=== PATIENT | female | born 1950 | race Caucasian/White ===

== ENCOUNTER 2021-09-28 12:19 | Observation (INO) | payer MEDICARE ==
[2021-09-28 12:57] LABS: #Eosinphils 0.1 thou/uL (0.0-0.7); #Lymphocytes 1.7 thou/uL (1.20-3.40); #Monocytes 0.7 thou/uL (0.11-0.59); #Neutrophils 3.3 thou/uL (1.40-6.50); %Basophils 0.5 % (0.0-1.0); %Eosinophils 1.1 % (0.0-10.0); %Lymphocytes 29.1 % (21.0-51.0); %Monocytes 11.7 % (0.0-10.0); %Neutrophils 57.6 % (42.0-75.0); Hemoglobin 11.9 g/dL (12.0-16.0); Mean Corpuscular HGB CONC 32.4 g/dL (32.0-36.0); Mean Corpuscular Hemoglobin 30.6 pg (27.0-31.0); Mean Corpuscular Volume 94.4 fL (78.0-98.0); Mean Platelet Volume 7.3 fL (7.4-10.4); Platelet Count 248 thou/uL (130-400); RBC Distribution Width 13.9 % (11.5-14.5); Red Blood Cell (RBC) Count 3.88 mill/uL (4.20-5.40); White Blood Cell (WBC) Count 5.8 thou/uL (4.8-10.8)
[2021-09-28] MEDS ORDERED: Nitroglycerin 2% Ointment 1 INCH/1 GM Packet ONE ×2 (13:18→13:19)
[2021-09-28 13:23] LABS: ALT (SGPT) 23 U/L (8-55); AST (SGOT) 19 U/L (5-34); Albumin 4.1 g/dL (3.4-4.8); Alkaline Phosphatase 96 U/L (40-110); Anion Gap 14 mmol/L (10-20); BUN (Urea Nitrogen) 11 mg/dL (9.8-20.1); Bilirubin, Total 0.5 mg/dL (0.2-1.2); Calc. Creatinine Clearance 0 mL/min (70-130); Calcium 9.5 mg/dL (7.8-10.44); Carbon Dioxide 28 mmol/L (23-31); Chloride 102 mmol/L (98-107); Globulin 2.3 g/dL (2.4-3.5); Glucose 96 mg/dL (80-115); Potassium 3.4 mmol/L (3.5-5.1); Protein, Total 6.4 g/dL (5.8-8.1); Sodium 141 mmol/L (136-145)
[2021-09-28] MEDS ORDERED: Cyclobenzaprine 10 MG TAB ONE (14:34)
[2021-09-28] MEDS ORDERED: Potassium Chloride 20 MEQ TAB ONE (14:34)
[2021-09-28] MEDS ORDERED: Ondansetron PF 4 MG/2 ML Vial ONE (14:35)
[2021-09-28] MEDS ORDERED: Acetaminophen 325 MG TAB PO PRN (16:06)
[2021-09-28] MEDS ORDERED: Ondansetron ODT 4 MG TAB PO PRN (16:06)
[2021-09-28] MEDS ORDERED: Albuterol 200 PUFF (6.7GM INHALER) INH PRN (16:34)
[2021-09-28] MEDS ORDERED: Lidocaine 5% Patch TD PRN (16:34)
[2021-09-28 16:44] LABS: Troponin I 0.017 ng/mL (< 0.028)
[2021-09-28 17:29] LABS: SARS-CoV-2 NAA Rapid Test Not Detected (NotDetected)
[2021-09-28 18:46] VITALS: BMI 30.4
[2021-09-28 19:07] LABS: Troponin I Less than 0.010 ng/mL (< 0.028)
[2021-09-28] MEDS ORDERED: Mometasone 200 MCG/PUFF (1 INHALER) INH SCH (20:45)
[2021-09-28] MEDS: oxyCODONE 5 MG TAB PO PRN (20:47)
[2021-09-28] MEDS: Furosemide 80 MG TAB PO SCH (20:47)
[2021-09-28] MEDS: ALPRAZolam 1 MG TAB PO PRN (20:47)
[2021-09-28] MEDS: Carvedilol 25 MG TAB PO SCH (20:50)
[2021-09-28] MEDS: Acyclovir 400 mg Tablet PO SCH (20:50)
[2021-09-28] MEDS: Docusate Calcium (SURFAK) 240 MG CAP PO SCH (20:51)
[2021-09-28] MEDS: Ketotifen Fumarate 0.025% Ophth Soln 5 ml Bottle EA EYE SCH (20:51)
[2021-09-28] MEDS: Fluticasone Propionate Nasal Spray 16 gm Bottle NASAL SCH (20:51)
[2021-09-28] MEDS: Rivaroxaban 2.5 MG TAB PO SCH (20:52)
[2021-09-28] MEDS: Ondansetron ODT 4 MG TAB PO SCH (20:52)
[2021-09-28] MEDS: Potassium Bicarbonate/Cit Ac 20 MEQ TAB PO SCH (20:52)
[2021-09-28] MEDS ORDERED: Zolpidem Tartrate 5 MG TAB PO SCH (21:00)
[2021-09-28] MEDS ORDERED: Donepezil HCl 10 MG TAB PO SCH (21:00)
[2021-09-28] MEDS ORDERED: Loratadine 10 MG TAB PO SCH (21:00)
[2021-09-29] MEDS: oxyCODONE 5 MG TAB PO PRN ×2 (02:01→10:58)
[2021-09-29] MEDS: Nitroglycerin 0.4 MG TAB (25 Tab Bottle) SL PRN ×2 (02:05→03:32)
[2021-09-29] MEDS: ALPRAZolam 1 MG TAB PO PRN ×2 (03:54→09:15)
[2021-09-29] MEDS: Ondansetron ODT 4 MG TAB PO SCH ×2 (03:56→10:59)
[2021-09-29 05:10] LABS: #Eosinphils 0.1 thou/uL (0.0-0.7); #Lymphocytes 1.7 thou/uL (1.20-3.40); #Monocytes 0.5 thou/uL (0.11-0.59); #Neutrophils 2.7 thou/uL (1.40-6.50); %Eosinophils 1.8 % (0.0-10.0); %Monocytes 9.5 % (0.0-10.0); %Neutrophils 53.7 % (42.0-75.0); Hemoglobin 11.1 g/dL (12.0-16.0); Mean Corpuscular HGB CONC 33.7 g/dL (32.0-36.0); Mean Corpuscular Hemoglobin 32.3 pg (27.0-31.0); Mean Corpuscular Volume 95.8 fL (78.0-98.0); Mean Platelet Volume 7.3 fL (7.4-10.4); Platelet Count 221 thou/uL (130-400); RBC Distribution Width 14.1 % (11.5-14.5); Red Blood Cell (RBC) Count 3.43 mill/uL (4.20-5.40)
[2021-09-29 05:33] LABS: Anion Gap 12 mmol/L (10-20); BUN (Urea Nitrogen) 10 mg/dL (9.8-20.1); Calc. Creatinine Clearance 100 mL/min (70-130); Calcium 8.3 mg/dL (7.8-10.44); Carbon Dioxide 28 mmol/L (23-31); Cardiac Risk 2.9 (Less than 4.5); Chloride 102 mmol/L (98-107); Cholesterol 152 mg/dl (< 200 Desired); Glucose 102 mg/dL (80-115); HDL Cholesterol 52 mg/dL (>60 Neg Risk); LDL Cholesterol, Calculated 80 mg/dL; Potassium 3.6 mmol/L (3.5-5.1); Sodium 138 mmol/L (136-145); Triglycerides 100 mg/dL (Less than 150)
[2021-09-29 05:38] LABS: Troponin I Less than 0.010 ng/mL (< 0.028)
[2021-09-29] MEDS ORDERED: Mometasone 200 MCG/PUFF (1 INHALER) INH SCH ×2 (06:30)
[2021-09-29] MEDS ORDERED: Atorvastatin Calcium 40 MG TAB PO SCH (09:00)
[2021-09-29] MEDS ORDERED: Transdermal Patch Removal TOP SCH (09:00)
[2021-09-29] MEDS ORDERED: Aspirin 81 mg Enteric Coated Tablet PO SCH (09:00)
[2021-09-29] MEDS ORDERED: Clopidogrel Bisulfate 75 MG TAB PO SCH (09:00)
[2021-09-29] MEDS ORDERED: Losartan 25 MG TAB PO SCH (09:00)
[2021-09-29] MEDS ORDERED: Estradiol 1 MG TAB PO SCH (09:00)
[2021-09-29] MEDS ORDERED: Oxybutynin 5 MG TAB PO SCH (09:00)
[2021-09-29] MEDS ORDERED: FLUoxetine HCl 20 MG CAP PO SCH (09:00)
[2021-09-29] MEDS ORDERED: Ezetimibe 10 MG TAB PO SCH (09:00)
[2021-09-29] MEDS ORDERED: Amlodipine 10 MG TAB PO SCH (09:00)
[2021-09-29] MEDS: Acyclovir 400 mg Tablet PO SCH (09:07)
[2021-09-29] MEDS: Rivaroxaban 2.5 MG TAB PO SCH (09:07)
[2021-09-29] MEDS: Carvedilol 25 MG TAB PO SCH (09:08)
[2021-09-29] MEDS: Docusate Calcium (SURFAK) 240 MG CAP PO SCH (09:08)
[2021-09-29] MEDS: Furosemide 80 MG TAB PO SCH (09:08)
[2021-09-29] MEDS: Potassium Bicarbonate/Cit Ac 20 MEQ TAB PO SCH ×2 (09:09→14:24)
[2021-09-29] MEDS: Ketotifen Fumarate 0.025% Ophth Soln 5 ml Bottle EA EYE SCH (09:09)
[2021-09-29] MEDS: Fluticasone Propionate Nasal Spray 16 gm Bottle NASAL SCH (09:09)
[2021-09-29 11:34] VITALS: TEMP 97.7
[2021-09-29 16:43] VITALS: BP 106/60
== END 2021-09-29 17:50 | disposition home or self-care (01) ==
LOC: ERS 12:19 → ERHOLD 14:49 → 2SW 17:55
PROVIDERS: ADMIT Student in an Organized Health Care Education/Training Program; ATTEND Student in an Organized Health Care Education/Training Program
DX: I25.110 Atherosclerotic heart disease of native coronary artery with unstable angina pectoris (principal); I24.9 Acute ischemic heart disease, unspecified; I11.0 Hypertensive heart disease with heart failure; I50.30 Unspecified diastolic (congestive) heart failure; G47.00 Insomnia, unspecified; I27.20 Pulmonary hypertension, unspecified; J44.9 Chronic obstructive pulmonary disease, unspecified; K21.9 Gastro-esophageal reflux disease without esophagitis; R32 Unspecified urinary incontinence; F41.9 Anxiety disorder, unspecified; F32.A Depression, unspecified; M19.90 Unspecified osteoarthritis, unspecified site; E78.5 Hyperlipidemia, unspecified; R73.03 Prediabetes; G47.33 Obstructive sleep apnea (adult) (pediatric); E78.00 Pure hypercholesterolemia, unspecified; I08.1 Rheumatic disorders of both mitral and tricuspid valves; R00.1 Bradycardia, unspecified; I25.2 Old myocardial infarction; D64.9 Anemia, unspecified; T82.857A Stenosis of other cardiac prosthetic devices, implants and grafts, initial encounter; Z86.73 Personal history of transient ischemic attack (TIA), and cerebral infarction without residual deficits; Z79.02 Long term (current) use of antithrombotics/antiplatelets; Z79.82 Long term (current) use of aspirin; Z79.899 Other long term (current) drug therapy; Z88.1 Allergy status to other antibiotic agents; Z88.2 Allergy status to sulfonamides; Z88.5 Allergy status to narcotic agent; Z88.6 Allergy status to analgesic agent; Z88.8 Allergy status to other drugs, medicaments and biological substances; Z95.1 Presence of aortocoronary bypass graft; Z95.5 Presence of coronary angioplasty implant and graft; Z20.822 Contact with and (suspected) exposure to COVID-19
CPT/HCPCS: 71045; 80048; 80053; 80061; 83880; 84484 ×3; 85025 ×2; 93005 ×2; 93306; 96374; 97139; 99285; G0378 ×3; U0002; 36415; 93010; J2405; Q0162